=== PATIENT | female | born 1995 | race Two or more races ===

== ENCOUNTER 2017-02-19 11:36 | Emergency (ER) | payer BC ==
[~2017-02-19] VITALS: Ht 157.5 cm; Wt 77.1 kg
[2017-02-19] MEDS ORDERED: LORAZEPAM 1 MG TABLET ONE (11:56)
[2017-02-19] MEDS ORDERED: LORAZEPAM 1 MG TABLET PO ONE (12:00)
[2017-02-19 12:43] VITALS: BP 122/64
== END 2017-02-19 12:44 | disposition home or self-care (01) ==
LOC: ER 11:38
DX: F41.9 Anxiety disorder, unspecified (principal); F32.9 Major depressive disorder, single episode, unspecified
CPT/HCPCS: A4606; Z7610